=== PATIENT | male | born 1990 | race Caucasian/White ===

== ENCOUNTER 2016-12-31 19:41 | Emergency (ER) | payer SELFPAY ==
[2016-12-31] MEDS ORDERED: ONDANSETRON DISINTEGRATING 4 MG TAB ONE (19:42)
[2016-12-31 19:50] VITALS: TEMP 97.9
[2016-12-31] MEDS ORDERED: ONDANSETRON DISINTEGRATING 4 MG TAB PO ONE (19:51)
[2016-12-31] MEDS ORDERED: LORazepam 2 MG/ML INJ ONE (20:21)
[2016-12-31] MEDS ORDERED: LORazepam 2 MG/ML INJ IVP ONE (20:21)
[2016-12-31] MEDS ORDERED: NS 1,000 ML IV ONE ×2 (20:22→22:41)
--- NOTE | 2016-12-31 20:39 | EDPHY ---
H & P Smoking Status: Never smoked Time Seen by Provider: 12/31/16 19:59 HPI/ROS: CHIEF COMPLAINT: Vomiting, anxiety HISTORY OF PRESENT ILLNESS: 26-year-old male presents to the emergency department by private vehicle feeling extremely anxious. He has vomited multiple times over last 3 days. He has a history of anxiety. He has a history of same symptoms. He smokes marijuana although has not smoked in "a while ". He describes diffuse abdominal cramping and pain. Denies urinary symptoms. No diarrhea. No chest pain. No difficulty breathing. He does however feel extremely anxious. He saw Dr. Chandler Will today and was prescribed clonazepam 0.5 mg. He has taken 5 these tablets without relief. He still continues to feel extremely anxious. He states that he also tried taking numerous hot showers today. He denies any other substance abuse. He has seen a editor department for this in the past and had an endoscopy and colonoscopy which were normal. REVIEW OF SYSTEMS: Constitutional: No fever, no chills. Eyes: No double or blurry vision. ENT: No sore throat. Respiratory: No cough, no shortness of breath. Cardiac: No chest pain. Gastrointestinal: As above. Genitourinary: No dysuria. Musculoskeletal: No neck or back pain. Skin: No rashes. Neurological: No headache. (LucMarlys Neal) Past Medical/Surgical History: Marijuana use, anxiety (Neeta Callea Neal) Social History: Single (Marlys Calle) Physical Exam: General Appearance: Alert, mild distress. Anxious, tearful Eyes: Pupils equal and round. Extraocular motions are all intact. ENT: Mouth: Mucous membranes dry Respiratory: No wheezing, rhonchi, or rales, lungs are clear to auscultation. Cardiovascular: Regular rate and rhythm. Gastrointestinal: Abdomen is soft and nontender, no masses, no rebound or guarding, bowel sounds normal. Neurological: Alert and oriented x 3, cranial nerves II through XII grossly intact Skin: Warm and dry, no rashes. Musculoskeletal: Nontender to palpate along the cervical, thoracic or lumbar spine. Neck is supple. Extremities: Full range of motion and no peripheral edema. Psychiatric: Patient is oriented X 3, there is no agitation. (LucMarlys) Constitutional: Initial Vital Signs Temperature (C) 36.6 C 12/31/16 19:47 Heart Rate 48 L 12/31/16 19:47 Respiratory Rate 20 12/31/16 19:47 Blood Pressure 132/81 H 12/31/16 19:47 O2 Sat (%) 99 12/31/16 19:47 O2 Delivery Mode Nasal Cannula O2 (L/minute) 2 Allergies/Adverse Reactions: No Known Allergies Allergy (Unverified 12/31/16 19:46) Home Medications: Medication Instructions Recorded CLONAZEPAM 12/31/16 VENLAFAXINE HCL 12/31/16 Medical Decision Making ED Course/Re-evaluation: 26-year-old male presents feeling extremely anxious, abdominal pain and vomiting. An IV is established and he has normal chemistries. White blood cell count is slightly elevated. Patient received IV normal saline, 1 mg of Ativan IV. He was bradycardic in the 40s. The patient states "my heart rate is always low ". He continues to complaining of ongoing abdominal pain. He was given 30 mg of IV Toradol. He felt slightly better although still nauseous and still having abdominal pain. I did not feel comfortable continuing to give lorazepam with him being so bradycardic. He was given 20 mg of IV ketamine per Dr. Angel Park request. When the patient can tolerate p.o. fluids, he will be discharged with primary care follow-up. The patient was also seen examined by Dr. Angel Park. The patient continued to feel nauseous and extremely anxious. He was given 2.5 mg of Haldol IV. He is on a potline monitor. EKG reveals normal sinus rhythm with bradycardia with a heart rate of 44. (Marlys Calle) [id number]: I did go re-evaluate the patient is resting comfortably. Sitting her sleeping. He denies any nausea vomiting. His anxiety is well controlled. His abdomen is soft. I did wake him he received 2.5 mg IV Haldol. He has been sleeping. He tells me feels much better he would like to go home. Denies any chest pain shortness of breath or abdominal pain denies fever. He appears well. Studies bradycardic when he sleeping down to 45. His EKG shows a sinus bradycardia. He has no cardiac complaints. Recommend close follow-up with his primary care doctor about his anxiety. (Angel Park) Differential Diagnosis: Including but not limited to pancreatitis, GERD, peptic ulcer disease, dehydration, cyclical vomiting syndrome, hyperemesis cannabinoid syndrome (Marlys Calle) Care Turn Over: Care will be turned over to Dr. Park for disposition and plan. (Marlys Calle) - Data Points Laboratory Results: Laboratory Results 12/31/16 20:20 12/31/16 21:50 12/31/16 12/31/16 12/31/16 21:50 20:50 20:20 WBC RBC Hgb Hct MCV MCH MCHC RDW Plt Count MPV Neut % (Auto) Lymph % (Auto) [place] % (Auto) Eos % (Auto) Baso % (Auto) Nucleat RBC Rel Count Absolute Neuts (auto) Absolute Lymphs (auto) Absolute Monos (auto) Absolute Eos (auto) Absolute Basos (auto) Absolute Nucleated RBC Immature Gran % Immature Gran # Sodium 142 mEq/L mEq/L TNP (134-144) Potassium 3.4 mEq/L L mEq/L Not Reported (3.5-5.2) Chloride 105 mEq/L mEq/L Not Reported (97-110) Carbon Dioxide 22 mEq/l mEq/l Not Reported (22-31) Anion Gap 15 mEq/L mEq/L Not Reported (8-16) BUN 14 mg/dL mg/dL Not Reported (7-23) Creatinine 0.8 mg/dL mg/dL Not Reported (0.7-1.3) Estimated GFR > 60 Not Reported Glucose 136 mg/dL H mg/dL Not Reported (70-100) Calcium 9.3 mg/dL mg/dL Not Reported (8.5-10.4) Total Bilirubin 1.1 mg/dL mg/dL (0.1-1.4) Conjugated Bilirubin 0.4 mg/dL mg/dL (0.0-0.5) Unconjugated Bilirubin 0.7 mg/dL mg/dL (0.0-1.1) AST 28 IU/L IU/L (17-59) ALT 41 IU/L IU/L (21-72) Alkaline Phosphatase 48 IU/L IU/L (38-126) Total Protein 6.5 g/dL g/dL (6.3-8.2) Albumin 4.6 g/dL g/dL (3.5-5.0) Lipase 64 IU/L IU/L (23-300) 12/31/16 20:20 WBC 15.49 10^3/uL H 10^3/uL (3.80-9.50) RBC 5.36 10^6/uL 10^6/uL (4.40-6.38) Hgb 15.5 g/dL g/dL (13.7-17.5) Hct 45.2 % % (40.0-51.0) MCV 84.3 fL fL (81.5-99.8) MCH 28.9 pg pg (27.9-34.1) MCHC 34.3 g/dL g/dL (32.4-36.7) RDW 11.5 % % (11.5-15.2) Plt Count 286 10^3/uL 10^3/uL (150-400) MPV 10.4 fL fL (8.7-11.7) Neut % (Auto) 87.8 % H % (39.3-74.2) Lymph % (Auto) 7.3 % L % (15.0-45.0) [place] % (Auto) 4.0 % L % (4.5-13.0) Eos % (Auto) 0.0 % L % (0.6-7.6) Baso % (Auto) 0.3 % % (0.3-1.7) Nucleat RBC Rel Count 0.0 % % (0.0-0.2) Absolute Neuts (auto) 13.60 10^3/uL H 10^3/uL (1.70-6.50) Absolute Lymphs (auto) 1.13 10^3/uL 10^3/uL (1.00-3.00) Absolute Monos (auto) 0.62 10^3/uL 10^3/uL (0.30-0.80) Absolute Eos (auto) 0.00 10^3/uL L 10^3/uL (0.03-0.40) Absolute Basos (auto) 0.05 10^3/uL 10^3/uL (0.02-0.10) Absolute Nucleated RBC 0.00 10^3/uL 10^3/uL (0-0.01) Immature Gran % 0.6 % % (0.0-1.1) Immature Gran # 0.09 10^3/uL 10^3/uL (0.00-0.10) Sodium Potassium Chloride Carbon Dioxide Anion Gap BUN Creatinine Estimated GFR Glucose Calcium Total Bilirubin Conjugated Bilirubin Unconjugated Bilirubin AST ALT Alkaline Phosphatase Total Protein Albumin Lipase Medications Given: Discontinued Medications Haloperidol Lactate (Haldol Injection) 2.5 mg IVP EDNOW ONE Stop: 01/01/17 00:18 Last Admin: 01/01/17 00:21 Dose: 2.5 mg Sodium Chloride (Ns) 1,000 mls @ 0 mls/hr IV EDNOW ONE; Wide Open PRN Reason: Protocol Stop: 12/31/16 20:23 Last Admin: 12/31/16 20:26 Dose: 1,000 mls Sodium Chloride (Ns) 1,000 mls @ 0 mls/hr IV ONCE ONE PRN Reason: Wide Open Stop: 12/31/16 22:42 Last Admin: 12/31/16 22:42 Dose: 1,000 mls Sodium Chloride (Ns) 1,000 mls @ 0 mls/hr IV ONCE ONE; Wide Open PRN Reason: Protocol Stop: 01/01/17 00:23 Last Admin: 01/01/17 00:31 Dose: 1,000 mls Ketamine HCl (Ketamine) 20 mg IVP EDNOW ONE Stop: 12/31/16 23:37 Last Admin: 12/31/16 23:51 Dose: 20 mg Ketorolac Tromethamine (Toradol) 30 mg IVP EDNOW ONE Stop: 12/31/16 22:31 Last Admin: 12/31/16 22:39 Dose: 30 mg Lorazepam (Ativan Injection) 1 mg IVP EDNOW ONE Stop: 12/31/16 20:22 Last Admin: 12/31/16 20:26 Dose: 1 mg Ondansetron HCl (Zofran Odt) 4 mg PO EDNOW ONE Stop: 12/31/16 19:52 Last Admin: 12/31/16 19:53 Dose: 4 mg Departure - Departure Disposition: Home, Routine, Self-Care Clinical Impression: Anxiety Vomiting Qualifiers: Vomiting type: unspecified Vomiting Intractability: non-intractable Nausea presence: with nausea Qualified Code(s): R11.2 - Nausea with vomiting, unspecified Condition: Good Instructions: Anxiety (ED) Additional Instructions: 1. Please follow up with her primary care doctor. Referrals: CHANDLER WILL [Primary Care Provider] - As per Instructions
[2016-12-31 20:43] LABS: % IMMATURE GRANULYOCYTES 0.6 % (0.0-1.1); ABSOLUTE IMMATURE GRANULOCYTES 0.09 10^3/uL (0.00-0.10); ADD DIFF? NO; ADD MORPH? NO; ADD SCAN? NO; ATYPICAL LYMPHOCYTE FLAG 0 (0-99); FRAGMENT RBC FLAG 0 (0-99); HEMATOCRIT 45.2 % (40.0-51.0); HEMOGLOBIN 15.5 g/dL (13.7-17.5); LEFT SHIFT FLG 0 (0-99); LIPEMIA HEMOLYSIS FLAG 90 (0-99); MEAN CELL HEMOGLOBIN 28.9 pg (27.9-34.1); MEAN CELL HEMOGLOBIN CONCENTR. 34.3 g/dL (32.4-36.7); MEAN CELL VOLUME 84.3 fL (81.5-99.8); MEAN PLATELET VOLUME 10.4 fL (8.7-11.7); PLATELET CLUMPS FLAG 10 (0-99); PLATELET COUNT 286 10^3/uL (150-400); RED BLOOD CELL COUNT 5.36 10^6/uL (4.40-6.38); RED CELL DISTRIBUTION WIDTH 11.5 % (11.5-15.2)
[2016-12-31 22:25] LABS: ANION GAP 15 mEq/L (8-16); CALCIUM 9.3 mg/dL (8.5-10.4); CARBON DIOXIDE 22 mEq/l (22-31); CHLORIDE 105 mEq/L (97-110); CREATININE 0.8 mg/dL (0.7-1.3); GLOMERULAR FILTRATION RATE > 60; GLUCOSE 136 mg/dL (70-100); POTASSIUM 3.4 mEq/L (3.5-5.2); SODIUM 142 mEq/L (134-144)
[2016-12-31] MEDS ORDERED: KETOROLAC 30 MG/1 ML SDV IVP ONE (22:30)
[2016-12-31 22:58] LABS: ALBUMIN 4.6 g/dL (3.5-5.0); BILIRUBIN,TOTAL 1.1 mg/dL (0.1-1.4); BILIRUBIN-CONJUGATED 0.4 mg/dL (0.0-0.5); BILIRUBIN-UNCONJUGATED 0.7 mg/dL (0.0-1.1); TOTAL PROTEIN 6.5 g/dL (6.3-8.2)
--- NOTE | 2016-12-31 23:05 | CPEKG ---
Heart Rate: 46 RR Interval: 1304 P-R Interval: 156 QRSD Interval: 90 QT Interval: 432 QTC Interval: 378 P Ringold: 75 QRS Ringold: 88 T Wave Ringold: 73 EKG Severity - OTHERWISE NORMAL ECG - EKG Impression: SINUS BRADYCARDIA EKG Impression: ATRIAL PREMATURE COMPLEX Electronically Signed By: Angel Park 01-Jan-2017 06:58:32
[2016-12-31] MEDS ORDERED: KETAMINE 100 MG/10 ML SYR IVP ONE (23:36)
[2017-01-01] MEDS ORDERED: HALOPERIDOL LACT 5 MG/ML INJ IVP ONE (00:17)
[2017-01-01] MEDS ORDERED: HALOPERIDOL LACT 5 MG/ML INJ ONE (00:18)
[2017-01-01] MEDS ORDERED: NS 1,000 ML IV ONE (00:22)
[2017-01-01 01:03] VITALS: RESP 14
[2017-01-01 03:27] VITALS: BP 116/74; PULSE 60; O2SAT 96
== END 2017-01-01 03:27 | disposition home or self-care (01) ==
DX: F41.9 Anxiety disorder, unspecified (principal); R11.2 Nausea with vomiting, unspecified; E86.9 Volume depletion, unspecified
CPT/HCPCS: 96374; J1885; J2060

== ENCOUNTER 2017-01-01 22:07 | Emergency (ER) | payer SELFPAY ==
[2017-01-01 22:20] VITALS: TEMP 99.7
[2017-01-01] MEDS ORDERED: HALOPERIDOL LACT 5 MG/ML INJ IVP ONE (22:39)
--- NOTE | 2017-01-01 22:48 | EDPHY ---
H & P Stated Complaint: N/V; thinks d/t Rx'd meds Time Seen by Provider: 01/01/17 22:32 HPI/ROS: CHIEF COMPLAINT: nausea and vomiting HISTORY OF PRESENT ILLNESS: 26-year-old male presents emergency department complaining of nausea and vomiting. Patient reports he was started on venlafaxine 5 days ago for anxiety and has had nausea and vomiting and epigastric pain since this time. Patient was seen in the emergency department yesterday with a wbc of 14,000, otherwise unremarkable. Pt was given IV haldol with relief of his symptoms. He is a multiple time a day marijuana smoker, he states he feels better after taking a hot shower. Patient has another appointment with his primary care doctor on Thursday. Patient denies fevers or chills, no diarrhea, no urinary symptoms, no blood in his vomit. REVIEW OF SYSTEMS: A comprehensive 10 point review of systems is otherwise negative aside from elements mentioned in the history of present illness. Source: Patient Exam Limitations: No limitations - Personal History Current Tetanus/Diphtheria Vaccine: Yes Tetanus Vaccine Date: 2015 - Medical/Surgical History Hx Asthma: No Hx Chronic Respiratory Disease: No Hx Diabetes: No Hx Cardiac Disease: No Hx Renal Disease: No Hx Cirrhosis: No Hx Alcoholism: No Hx HIV/AIDS: No Hx Splenectomy or Spleen Trauma: No Other PMH: PMHx: anxiety. PSHx: denies - Social History Smoking Status: Never smoked - Physical Exam Exam: Physical Exam Gen: Alert and Oriented, anxious, grimacing HEENT: PERRL, moist mucous membranes NECK: no meningismus CV: regular rate and regular rhythm PULM: CTAB, no wheezes ABDOMEN: soft, mild epigastric tenderness to palpation, BS present BACK: No CVA tenderness NEURO: Neurologically grossly intact EXTREMITIES: normal appearing SKIN: no rash or break in skin on exposed skin PSYCH: answers questions appropriately. Constitutional: Initial Vital Signs Temperature (C) 37.6 C 01/01/17 22:17 Heart Rate 46 L 01/01/17 22:17 Respiratory Rate 14 01/01/17 22:17 Blood Pressure 135/76 H 01/01/17 22:17 O2 Sat (%) 95 01/01/17 22:17 O2 Delivery Mode Room Air Allergies/Adverse Reactions: No Known Allergies Allergy (Unverified 12/31/16 19:46) Home Medications: Medication Instructions Recorded CLONAZEPAM 12/31/16 VENLAFAXINE HCL 12/31/16 Medical Decision Making ED Course/Re-evaluation: IV established, CBC and chemistry panel obtained, patient is given 1 L normal saline and 5 mg of IV Haldol. He is also given 1 mg of oral lorazepam. WBC mildly elevated at 11,000. Chemistry panel is unremarkable. Patient reports feeling better after Haldol, lorazepam and IV fluids. He will be discharged home. I have recommended that he stop his venlafaxine and follow up with his primary care doctor as scheduled on Thursday. He is given return precautions for worsening symptoms, new symptoms or concerns. Repeat abdominal exam shows no peritonitis. Differential Diagnosis: Diagnosis considered but not limited to medication reaction, cyclic vomiting syndrome, gastroenteritis, anxiety. - Data Points Laboratory Results: Laboratory Results 01/01/17 22:58 01/01/17 22:58 Medications Given: Discontinued Medications Haloperidol Lactate (Haldol Injection) 5 mg IVP EDNOW ONE Stop: 01/01/17 22:40 Last Admin: 01/01/17 22:59 Dose: 5 mg Sodium Chloride (Ns) 1,000 mls @ 0 mls/hr IV EDNOW ONE; Wide Open PRN Reason: Protocol Stop: 01/01/17 23:52 Last Admin: 01/02/17 00:21 Dose: 1,000 mls Lorazepam (Ativan Injection) 1 mg IVP EDNOW ONE Stop: 01/01/17 23:38 Last Admin: 01/02/17 00:21 Dose: 1 mg Departure - Departure Disposition: Home, Routine, Self-Care Clinical Impression: Anxiety Vomiting Qualifiers: Vomiting type: unspecified Vomiting Intractability: non-intractable Nausea presence: with nausea Qualified Code(s): R11.2 - Nausea with vomiting, unspecified Condition: Good Instructions: Acute Nausea and Vomiting (ED) Additional Instructions: Stop your medication. Follow up with your doctor as scheduled on Thursday. Referrals: JOSE ALFREDO HALL [Primary Care Provider] - As per Instructions
[2017-01-01 23:09] LABS: % IMMATURE GRANULYOCYTES 0.5 % (0.0-1.1); ABSOLUTE IMMATURE GRANULOCYTES 0.05 10^3/uL (0.00-0.10); ADD DIFF? NO; ADD MORPH? NO; ADD SCAN? NO; ATYPICAL LYMPHOCYTE FLAG 0 (0-99); FRAGMENT RBC FLAG 0 (0-99); HEMATOCRIT 39.2 % (40.0-51.0); HEMOGLOBIN 13.4 g/dL (13.7-17.5); LEFT SHIFT FLG 0 (0-99); LIPEMIA HEMOLYSIS FLAG 90 (0-99); MEAN CELL HEMOGLOBIN 29.3 pg (27.9-34.1); MEAN CELL HEMOGLOBIN CONCENTR. 34.2 g/dL (32.4-36.7); MEAN CELL VOLUME 85.6 fL (81.5-99.8); PLATELET CLUMPS FLAG 10 (0-99); PLATELET COUNT 198 10^3/uL (150-400); RED BLOOD CELL COUNT 4.58 10^6/uL (4.40-6.38); RED CELL DISTRIBUTION WIDTH 11.5 % (11.5-15.2)
[2017-01-01] MEDS ORDERED: LORazepam 2 MG/ML INJ IVP ONE (23:37)
[2017-01-01 23:41] LABS: ANION GAP 11 mEq/L (8-16); CALCIUM 9.2 mg/dL (8.5-10.4); CARBON DIOXIDE 27 mEq/l (22-31); CHLORIDE 102 mEq/L (97-110); CREATININE 0.7 mg/dL (0.7-1.3); GLOMERULAR FILTRATION RATE > 60; GLUCOSE 100 mg/dL (70-100); POTASSIUM 3.2 mEq/L (3.5-5.2); SODIUM 140 mEq/L (134-144)
[2017-01-01] MEDS ORDERED: NS 1,000 ML IV ONE (23:51)
[2017-01-02 00:59] VITALS: BP 112/59; PULSE 49; RESP 18; O2SAT 97
== END 2017-01-02 00:59 | disposition home or self-care (01) ==
DX: R11.2 Nausea with vomiting, unspecified (principal); F41.9 Anxiety disorder, unspecified; E86.9 Volume depletion, unspecified
CPT/HCPCS: 96374; J2060

== ENCOUNTER 2017-01-02 16:40 | Emergency (ER) | payer SELFPAY ==
--- NOTE | 2017-01-02 17:49 | EDPHY ---
H & P Stated Complaint: cyclic vomiting/hasn't been able to smoke thc for 4 days Time Seen by Provider: 01/02/17 17:30 HPI/ROS: CHIEF COMPLAINT: Cyclic vomiting HISTORY OF PRESENT ILLNESS: The patient presents to the ED with complaints of abdominal pain and a reported history of cyclic vomiting syndrome. This is the patient's 3rd visit to the emergency department in 3 days. The patient tells me is had no vomiting today with simply epigastric pain. The patient states he would like to be admitted to the hospital for observation this evening. The patient denies any marijuana use today. He denies any melena or hematemesis. He denies additional complaints. REVIEW OF SYSTEMS: A comprehensive 10 point review of systems is otherwise negative aside from elements mentioned in the history of present illness. Source: Patient Exam Limitations: No limitations - Personal History Current Tetanus/Diphtheria Vaccine: Yes Tetanus Vaccine Date: 2015 - Medical/Surgical History Hx Asthma: No Hx Chronic Respiratory Disease: No Hx Diabetes: No Hx Cardiac Disease: No Hx Renal Disease: No Hx Cirrhosis: No Hx Alcoholism: No Hx HIV/AIDS: No Hx Splenectomy or Spleen Trauma: No Other PMH: PMHx: anxiety. PSHx: cyclic vomiting - Social History Smoking Status: Never smoked - Physical Exam Exam: General Appearance: Thin male, no acute distress Eyes: Pupils equal and round no pallor or injection ENT, Mouth: Mucous membranes moist Respiratory: There are no retractions, lungs are clear to auscultation Cardiovascular: Regular rate and rhythm Gastrointestinal: Epigastric tenderness, no peritoneal signs Neurological: A&O, normal motor function, normal sensory exam, normal cranial nerves Skin: Warm and dry, no rashes Musculoskeletal: Neck is supple nontender Extremities: symmetrical, full range of motion Constitutional: Initial Vital Signs Temperature (C) 37.1 C 01/02/17 16:44 Heart Rate 54 L 01/02/17 16:44 Respiratory Rate 17 01/02/17 16:44 Blood Pressure 136/78 H 01/02/17 16:44 O2 Sat (%) 96 01/02/17 16:44 O2 Delivery Mode Room Air Allergies/Adverse Reactions: No Known Allergies Allergy (Verified 01/02/17 16:44) Home Medications: Medication Instructions Recorded CLONAZEPAM 12/31/16 VENLAFAXINE HCL 12/31/16 PROMETHAZINE HCL 01/02/17 Medical Decision Making ED Course/Re-evaluation: The patient is well-appearing. He has a benign abdominal examination. I reviewed the patient's past medical records and laboratory database. The patient is given a GI cocktail in the emergency department. He has no current vomiting. The patient does have a prescription for Phenergan which he can continue as an outpatient. The patient is advised to continue to abstain from marijuana. He is given customary aftercare and return precautions. Departure - Departure Disposition: Home, Routine, Self-Care Clinical Impression: Chronic abdominal pain Condition: Good Instructions: Acute Nausea and Vomiting (ED) Additional Instructions: 1. Please continue Phenergan as needed for nausea. 2. Maalox as needed for abdominal discomfort. 3. Please follow up with the bicycle technician you have been referred to for any ongoing symptoms. Referrals: JOSE ALFREDO HALL [Primary Care Provider] - As per Instructions
[2017-01-02] MEDS ORDERED: LORazepam 2 MG/ML INJ IVP ONE (17:50)
[2017-01-02] MEDS ORDERED: HALOPERIDOL LACT 5 MG/ML INJ IVP ONE (17:51)
[2017-01-02] MEDS ORDERED: MAG HYDROX/AL HYDROX/SIMETH 30 ML UDCUP PO ONE (18:09)
[2017-01-02] MEDS ORDERED: LIDOCAINE 2% VISCOUS 15 ML UDCUP PO ONE (18:09)
[2017-01-02] MEDS ORDERED: HYOSCYAMINE SULFATE 0.125 MG TAB PO ONE (18:09)
[2017-01-02 19:33] VITALS: BP 130/88; PULSE 63; RESP 18; TEMP 98.4; O2SAT 95
== END 2017-01-02 19:33 | disposition home or self-care (01) ==
DX: R10.13 Epigastric pain (principal); G89.29 Other chronic pain

== ENCOUNTER 2017-06-08 18:47 | Emergency (ER) | payer SELFPAY ==
[2017-06-08 19:51] VITALS: RESP 16; TEMP 98.8
[2017-06-08] MEDS ORDERED: NS 1,000 ML IV ONE (21:48)
[2017-06-08] MEDS ORDERED: LORazepam 2 MG/ML INJ IVP ONE (21:48)
--- NOTE | 2017-06-08 21:50 | EDPHY ---
H & P Time Seen by Provider: 06/08/17 21:19 HPI/ROS: CHIEF COMPLAINT: Anxiety, vomiting HISTORY OF PRESENT ILLNESS: 26-year-old male presents to the emergency department by private vehicle with severe symptoms of anxiety and vomiting. The patient has a known history of severe anxiety. He states that his anxiety has been so severe that he has been vomiting over last few days has been unable to eat or drink anything for "4 days". He denies any chest pain or difficulty breathing. He does state however that he has been urinating. No bowel movement today. No reported trauma. Patient denies suicidal or homicidal ideation. He states that he has been under lot of stress lately related to his coworkers. REVIEW OF SYSTEMS: Constitutional: No fever, no chills. Eyes: No double or blurry vision. ENT: No sore throat. Respiratory: No cough, no shortness of breath. Cardiac: No chest pain. Gastrointestinal: No abdominal pain, vomiting or diarrhea. Genitourinary: No dysuria. Musculoskeletal: No neck or back pain. Skin: No rashes. Neurological: No headache. Past Medical/Surgical History: Anxiety Social History: Works as a manager [employer] Smoking Status: Never smoked Physical Exam: General Appearance: Alert, no distress. Tearful Eyes: Pupils equal and round. Extraocular motions are all intact. ENT: Mouth: Mucous membranes appear very dry. Respiratory: No wheezing, rhonchi, or rales, lungs are clear to auscultation. Cardiovascular: Regular rate and rhythm. Gastrointestinal: Abdomen is soft and nontender, no masses, no rebound or guarding, bowel sounds normal. Neurological: Alert and oriented x 3, cranial nerves II through XII grossly intact Skin: Warm and dry, no rashes. Musculoskeletal: Nontender to palpate along the cervical, thoracic or lumbar spine. Neck is supple. Extremities: Full range of motion and no peripheral edema. Psychiatric: Patient is oriented X 3, there is no agitation. Constitutional: Initial Vital Signs Temperature (C) 37.1 C 06/08/17 19:49 Heart Rate 59 L 06/08/17 19:49 Respiratory Rate 16 06/08/17 19:49 Blood Pressure 129/76 H 06/08/17 19:49 O2 Sat (%) 96 06/08/17 19:49 O2 Delivery Mode Room Air Allergies/Adverse Reactions: No Known Allergies Allergy (Verified 06/08/17 19:51) Home Medications: Medication Instructions Recorded CLONAZEPAM 12/31/16 Medical Decision Making ED Course/Re-evaluation: 26-year-old male presents to the emergency department with extreme anxiety where he is unable to take p.o. Fluids. He feels extremely nauseous. He had laboratory studies which were within normal limits. He received IV normal saline as well as IV lorazepam. He was feeling much better. His tolerating p. O. Fluids and will be discharged. I encouraged close follow-up with his primary care provider including his psychiatrist to discuss his symptoms of anxiety. I do not think imaging studies are indicated. His abdomen is benign. Differential Diagnosis: Including but not limited to anxiety, depression, dehydration, electrolyte abnormality, cyclical vomiting syndrome, substance abuse - Data Points Laboratory Results: Laboratory Results 06/08/17 22:05 06/08/17 22:05 06/08/17 06/08/17 22:05 22:05 WBC 8.55 10^3/uL 10^3/uL (3.80-9.50) RBC 5.30 10^6/uL 10^6/uL (4.40-6.38) Hgb 15.4 g/dL g/dL (13.7-17.5) Hct 45.0 % % (40.0-51.0) MCV 84.9 fL fL (81.5-99.8) MCH 29.1 pg pg (27.9-34.1) MCHC 34.2 g/dL g/dL (32.4-36.7) RDW 11.7 % % (11.5-15.2) Plt Count 273 10^3/uL 10^3/uL (150-400) MPV 9.6 fL fL (8.7-11.7) Neut % (Auto) 70.2 % % (39.3-74.2) Lymph % (Auto) 20.7 % % (15.0-45.0) [place] % (Auto) 8.3 % % (4.5-13.0) Eos % (Auto) 0.0 % L % (0.6-7.6) Baso % (Auto) 0.4 % % (0.3-1.7) Nucleat RBC Rel Count 0.0 % % (0.0-0.2) Absolute Neuts (auto) 6.01 10^3/uL 10^3/uL (1.70-6.50) Absolute Lymphs (auto) 1.77 10^3/uL 10^3/uL (1.00-3.00) Absolute Monos (auto) 0.71 10^3/uL 10^3/uL (0.30-0.80) Absolute Eos (auto) 0.00 10^3/uL L 10^3/uL (0.03-0.40) Absolute Basos (auto) 0.03 10^3/uL 10^3/uL (0.02-0.10) Absolute Nucleated RBC 0.00 10^3/uL 10^3/uL (0-0.01) Immature Gran % 0.4 % % (0.0-1.1) Immature Gran # 0.03 10^3/uL 10^3/uL (0.00-0.10) Sodium 144 mEq/L mEq/L (135-145) Potassium 3.1 mEq/L L mEq/L (3.5-5.2) Chloride 97 mEq/L mEq/L (97-110) Carbon Dioxide 25 mEq/l mEq/l (22-31) Anion Gap 22 mEq/L H mEq/L (8-16) BUN 12 mg/dL mg/dL (7-23) Creatinine 0.8 mg/dL mg/dL (0.7-1.3) Estimated GFR > 60 Glucose 93 mg/dL mg/dL (70-100) Calcium 10.1 mg/dL mg/dL (8.5-10.4) Medications Given: Discontinued Medications Sodium Chloride (Ns) 1,000 mls @ 0 mls/hr IV ONCE ONE PRN Reason: Wide Open Stop: 06/08/17 21:49 Last Admin: 06/08/17 22:29 Dose: 1,000 mls Lorazepam (Ativan Injection) 1 mg IVP EDNOW ONE Stop: 06/08/17 21:49 Last Admin: 06/08/17 22:29 Dose: 1 mg Departure - Departure Disposition: Home, Routine, Self-Care Clinical Impression: Anxiety Condition: Good Instructions: Anxiety (ED) Additional Instructions: Follow-up with your psychiatrist as discussed. Return to the emergency department if you develop recurring vomiting or any other concerns. Clear liquids and slowly advance diet as tolerated. Referrals: [facility],. [Clinic] - As per Instructions
[2017-06-08 22:10] LABS: PLATELET COUNT 273 10^3/uL (150-400)
[2017-06-08 23:57] VITALS: BP 120/72; PULSE 55; O2SAT 98
== END 2017-06-08 23:55 | disposition home or self-care (01) ==
DX: F41.9 Anxiety disorder, unspecified (principal)
CPT/HCPCS: 96374; J2060